=== PATIENT | male | born 1960 | race African-American/Black ===

== ENCOUNTER 2017-08-20 07:52 | Emergency (ER) | payer OTHER ==
--- NOTE | 2017-08-20 08:44 | RADIOLOGY REPORT (SQ) ---
EXAM DESCRIPTION: CHEST PA/LAT COMPLETED DATE/TIME: 08/20/2017 8:34 am REASON FOR STUDY: cough flu like symptoms COMPARISON: None. TECHNIQUE: Frontal and lateral radiographic views of the chest acquired. NUMBER OF VIEWS: Two view. LIMITATIONS: None. FINDINGS: LUNGS AND PLEURA: Mild linear areas of subsegmental atelectasis. No consolidating pneumon ia suggested. MEDIASTINUM AND HILAR STRUCTURES: No masses or contour abnormalities. HEART AND VASCULAR STRUCTURES: Heart normal size. No evidence for failure. BONES: No acute findings. HARDWARE: None in the chest. OTHER: No other significant finding. IMPRESSION: As above. No suggestion of pneumonia. Mild bibasilar volume loss. TECHNICAL DOCUMENTATION: JOB ID: [id number] [employer]- All Rights Reserved
[2017-08-20] MEDS ORDERED: DEXAMETHASONE 4 MG TABLET PO ONE (09:09)
[2017-08-20] MEDS ORDERED: ALBUTEROL SULFATE HFA (90 MCG/PUFF) 8 GM MDI (1 MDI/ER DISP) IH ONE (09:09)
--- NOTE | 2017-08-20 09:11 | ER Document Report ---
ED General - General Chief Complaint: Flu Symptoms Stated Complaint: FLU LIKE SYMPTOMS Time Seen by Provider: 08/20/17 08:12 TRAVEL OUTSIDE OF THE [place] IN LAST 30 DAYS: No - HPI Patient complains to provider of: Flulike symptoms Notes: Patient complains of headache fevers chills shortness of breath muscle aches cough that is nonproductive ongoing for the last 48 hours. Patient denies any sick contacts patient states he did not receive a flu vaccination this year. Patient denies any recent travel recent antibiotics. Upon my evaluation patient is resting comfortably no signs of any obvious distress. - Related Data Allergies/Adverse Reactions: No Known Drug Allergies Allergy (Severe, Verified 08/20/17 07:52) cashews Allergy (Severe, Uncoded 08/20/17 07:52) swelling of airway Past Medical History - Social History Smoking Status: Never Smoker Chew tobacco use (# tins/day): No Frequency of alcohol use: None Drug Abuse: None Family History: Reviewed & Not Pertinent Patient has suicidal ideation: No Patient has homicidal ideation: No - Past Medical History Cardiac Medical History: Reports: Hx Hypertension Denies: Hx Coronary Artery Disease, Hx Heart Attack Pulmonary Medical History: Denies: Hx Asthma, Hx Bronchitis, Hx COPD, Hx Pneumonia Neurological Medical History: Denies: Hx Cerebrovascular Accident, Hx Seizures Renal/ Medical History: Denies: Hx Peritoneal Dialysis GI Medical History: Reports: Hx Hiatal Hernia. Denies: Hx Hepatitis, Hx Ulcer Musculoskeltal Medical History: Denies Hx Arthritis Infectious Medical History: Denies: Hx Hepatitis Past Surgical History: Reports: Hx Tonsillectomy. Denies: Hx Open Heart Surgery , Hx Pacemaker - Immunizations Hx Diphtheria, Pertussis, Tetanus Vaccination: No Review of Systems - Review of Systems Constitutional: Chills, Fever EENT: No symptoms reported Cardiovascular: No symptoms reported Respiratory: Cough Gastrointestinal: No symptoms reported Genitourinary: No symptoms reported Male Genitourinary: No symptoms reported Musculoskeletal: No symptoms reported Skin: No symptoms reported Hematologic/Lymphatic: No symptoms reported Neurological/Psychological: No symptoms reported, Headaches -: Yes All other systems reviewed and negative Physical Exam - Vital signs Vitals: Temp Pulse Resp BP Pulse Ox 99.4 F 110 H 17 131/77 H 94 08/20/17 07:57 08/20/17 07:57 08/20/17 07:57 08/20/17 07:57 08/20/17 07:57 Interpretation: Normal - General General appearance: Appears well, Alert - HEENT Head: Normocephalic, Atraumatic Eyes: Normal Conjunctiva: Normal Cornea: Normal Pupils: PERRL Ears: Normal External canal: Normal Tympanic membrane: Normal Sinus: Normal Mouth/Lips: Normal Pharynx: Normal Neck: Normal - Respiratory Respiratory status: No respiratory distress Chest status: Nontender Breath sounds: Normal Chest palpation: Normal - Cardiovascular Rhythm: Regular Heart sounds: Normal auscultation Murmur: No - Abdominal Inspection: Normal Distension: No distension Bowel sounds: Normal Tenderness: Nontender Organomegaly: No organomegaly - Back Back: Normal, Nontender - Extremities General upper extremity: Normal inspection, Nontender, Normal color, Normal ROM , Normal temperature General lower extremity: Normal inspection, Nontender, Normal color, Normal ROM , Normal temperature, Normal weight bearing. No: Adryan's sign - Neurological Neuro grossly intact: Yes Cognition: Normal Orientation: AAOx4 Yovana Coma Scale Eye Opening: Spontaneous Douglas Coma Scale Verbal: Oriented Douglas Coma Scale Motor: Obeys Commands Yovana Coma Scale Total: 15 Speech: Normal Motor strength normal: LUE, RUE, LLE, RLE Sensory: Normal - Psychological Associated symptoms: Normal affect, Normal mood - Skin Skin Temperature: Warm Skin Moisture: Dry Skin Color: Normal Course - Re-evaluation Re-evalutation: 08/20/17 12:31 Patient examination does not reveal any significant pathology. HPI is consistent with influenza. Chest x-ray was performed due to cough none signs of pneumonia. Patient was given bronchodilators to aid in his symptoms - Vital Signs Vital signs: Temp Pulse Resp BP Pulse Ox 97.9 F 93 20 129/76 H 98 08/20/17 09:20 08/20/17 09:20 08/20/17 09:20 08/20/17 09:20 08/20/17 09:20 Discharge - Discharge Clinical Impression: Flu-like symptoms Condition: Stable Disposition: HOME, SELF-CARE Instructions: Acetaminophen, Use of Arpk-Xax-Lkrjsdg Ibuprofen ([facility]), Ibuprofen (General) ([facility]), Influenza ([facility]) 4002-5120 Additional Instructions: Your chest x-ray does not show any signs of pneumonia. Your symptoms are consistent with influenza. Please take your home prescribed medications. Would recommend taking Tylenol Motrin as well for pain control. Please make sure he stay well hydrated he may use the inhaler given to use 2 puffs every 4 hours for any shortness of breath. Return to ER symptoms worsen. Follow-up with your primary care physician. Forms: Return to Work
[2017-08-20 09:20] VITALS: BP 129/76
== END 2017-08-20 09:20 | disposition home or self-care (01) ==
LOC: ER 07:52
DX: R51 Headache (principal); R50.9 Fever, unspecified; R06.02 Shortness of breath; M79.1 Myalgia; R05 Cough
CPT/HCPCS: 99283; 71020; J3490